=== PATIENT | female | born 1980 | race Two or more races ===

== ENCOUNTER 2016-08-06 17:41 | Emergency (ER) | payer MEDICAID ==
[~2016-08-06] VITALS: Ht 165.1 cm; Wt 97.2 kg
[2016-08-06 18:51] VITALS: BP 125/87
[2016-08-06] MEDS ORDERED: DIPHENHYDRAMINE 25 MG CAPSULE PO ONE (19:00)
[2016-08-06] MEDS ORDERED: PLEASE ENTER ALLERGIES MC SCH ×2 (19:00)
[2016-08-06] MEDS ORDERED: FAMOTIDINE 20 MG TABLET PO ONE (19:00)
[2016-08-06] MEDS ORDERED: DIPHENHYDRAMINE 25 MG CAPSULE ONE (19:18)
[2016-08-06] MEDS ORDERED: FAMOTIDINE 20 MG TABLET ONE (19:19)
[2016-08-06] MEDS ORDERED: TOPI100T94 PO (19:21)
== END 2016-08-06 19:55 | disposition home or self-care (01) ==
LOC: ED 18:27
DX: T78.40XA Allergy, unspecified, initial encounter (principal); X58.XXXA Exposure to other specified factors, initial encounter; G40.909 Epilepsy, unspecified, not intractable, without status epilepticus
CPT/HCPCS: 99284; J7512; Q0163

== ENCOUNTER 2016-10-12 22:40 | Emergency (ER) | payer MEDICAID ==
[~2016-10-12] VITALS: Ht 165.1 cm; Wt 92.6 kg
[~2016-10-12 22:40] MED LIST: TOPI100T94 PO
[2016-10-13] MEDS ORDERED: ONDANSETRON ODT 4 MG ONE (00:18)
[2016-10-13] MEDS ORDERED: HYDROcodone/APAP 5/325 TABLET ONE (00:18)
[2016-10-13] MEDS ORDERED: ONDANSETRON ODT 4 MG PO ONE (00:30)
[2016-10-13] MEDS ORDERED: HYDROcodone/APAP 5/325 TABLET PO ONE (00:30)
[2016-10-13 00:52] LABS: ASPARTATE AMINO TRANSFERASE 13 U/L (15-37); BLOOD UREA NITROGEN 12 mg/dL (7-18)
[2016-10-13 01:26] LABS: PATH.CAST-FLAG NOT PRESENT; SPERM-FLAG NOT PRESENT; SRC-FLAG NOT PRESENT; XTAL-FLAG NOT PRESENT; YLC-FLAG NOT PRESENT
[2016-10-13 02:56] VITALS: BP 128/88
== END 2016-10-13 02:59 | disposition home or self-care (01) ==
LOC: ED 23:59
DX: R10.11 Right upper quadrant pain (principal); Z88.0 Allergy status to penicillin
CPT/HCPCS: 36415; 76700; 80053; 81001; 83690; 84703; 85025; 87086; 99285; Q0162